=== PATIENT | female | born 1945 | race Caucasian/White ===

== ENCOUNTER 2025-04-18 17:17 | Emergency (ER) | payer MEDICARE ==
[~2025-04-18] VITALS: Ht 149.9 cm; Wt 61.2 kg
[2025-04-18 17:50] VITALS: TEMP 98.3
[2025-04-18] MEDS ORDERED: HYDROCODONE/APAP 5/325MG TABLET ONE (19:49)
[2025-04-18] MEDS: HYDROCODONE/APAP 5/325MG TABLET PO ONE ×2 (19:53→19:58)
[2025-04-18 20:30] VITALS: BP 124/68; O2SAT 96
== END 2025-04-18 20:55 | disposition home or self-care (01) ==
LOC: ER 17:19
DX: S20.211A Contusion of right front wall of thorax, initial encounter (principal); S40.011A Contusion of right shoulder, initial encounter; S40.021A Contusion of right upper arm, initial encounter; I10 Essential (primary) hypertension; E78.5 Hyperlipidemia, unspecified; V89.2XXA Person injured in unspecified motor-vehicle accident, traffic, initial encounter; Y93.89 Activity, other specified; Y92.89 Other specified places as the place of occurrence of the external cause; Y99.9 Unspecified external cause status; Y92.410 Unspecified street and highway as the place of occurrence of the external cause
CPT/HCPCS: 71100-TC; 73060-TC